=== PATIENT | female | born 1960 | race Caucasian/White ===

== ENCOUNTER 2017-07-17 10:18 | Outpatient (POV) | payer BC, SELFPAY | END 2017-07-17 11:23 | disposition home or self-care (01) | PROVIDERS: Visit Provider Podiatrist | DX: Z98.890 Other specified postprocedural states (principal) | CPT/HCPCS: 99024; 73630 ==

== ENCOUNTER → 2017-08-17 16:33 | Outpatient (CLI) | payer BC, SELFPAY ==
--- NOTE | 2017-08-17 | XR_ITS ---
XR foot RT min 3V HISTORY: Follow-up ORIF/arthrodesis ITS.REASON: S/P HOPKINS'S FX. ORDERING PHYSICIAN: Dot Lee DPM PATIENT AGE: 56 years COMPARISON: 07/17/2017 FINDINGS: Weightbearing views are performed. Status post arthrodesis with fusion of the talocalcaneal joint. There are 2 oblique screws extending from the posterior aspect of the calcaneus into the talus. Status post bone fragment removal of the posterior talus. Bony cortical irregularity is present at the posterior aspect of the talocalcaneal joint. There is good alignment. Stippled areas of increased density are present along and dorsal to the talocalcaneal joint and may be related to bony debris or inserted material to aid in the fusion process. IMPRESSION: No change status post posterior arthrodesis of the talocalcaneal joint with good alignment
== END ==
PROVIDERS: PCP Internal Medicine Adolescent Medicine; Visit Provider Podiatrist
DX: Z98.890 Other specified postprocedural states (principal)
CPT/HCPCS: 73630

== ENCOUNTER 2017-08-31 09:00 | Outpatient (RCR) | payer BC, SELFPAY ==
--- NOTE | 2017-08-29 08:09 | HMH.RHREAS ---
Rehab Reassessment Rehab OP Re-assessment Start: 08/17/17 08:47 Freq: Status: Active Protocol: Document 08/24/17 08:22 BRETTYASMIN (Rec: 08/24/17 09:15 LEONOR [id number]) Electronically Signed By Shaquille Rhoades, PT 08/24/17 08:22 Rehab Re-assessment Subjective Subjective PT REPORTS 2/10 R ANKLE PAIN W /ACTIVITY ON VAS, AND FEELS 75 -80% BETTER OVERALL SINCE I. EVAL Objective Objective Notes AROM R ANKLE DF 0-10, PF 0-32, INV 0-21, EVR 0-8 MMT: R ANKLE DF 4-4+/5, PF 4-4 +/5, INV 4/5, EVR 4/5 TTP: R ANKLE GLOBALLY 0/4 STANDING TOLERANCE 2-3 HRS WALKING TOLERANCE 1-2 HRS Assessment Progress Assessment Progressing as Expected Assessment Notes PT W/ MARKED IMPROVEMENTS IN ROM, STRENGTH, AND ROM Patient goals met STG 03/14 LTG 06/20 Goals Not Met LTG 14 (WORK, PAIN LEVEL, ADV HEP) Plan Plan PT TO CONTINUE WITH SKILLED P. T. TO ALLOW FOR FURTHER IMPROVEMENTS WITH HIGH LEVEL FUNCTIONAL ACTIVITIES IN AN EFFORT TO RETURN TO FULL-WORK- RELATED DUTIES Frequency of Therapy 1-2DAYS/WEEK Duration of therapy 1-2WEEKS Time and Billing Re-Eval Time 18 Re-Eval Billing Units 1 PHYSICIAN CERTIFICATION: I certify the specified therapy services for Rona Jones are required, authorized, and reviewed every 30 days.
== END 2017-08-31 09:01 | disposition home or self-care (01) ==
LOC: PT 09:00
PROVIDERS: Visit Provider Podiatrist
DX: Z98.890 Other specified postprocedural states (principal)
CPT/HCPCS: 97010; 97014; 97110; 97112; 97140; 97164; G0283

== ENCOUNTER → 2017-08-31 11:42 | Outpatient (CLI) | payer BC, SELFPAY ==
[2017-08-31 13:25] LABS: Hemoglobin A1C 5.7 % (0.0-7.0)
[2017-08-31 14:33] LABS: Alanine Aminotransferase 25 U/L (12-78); Albumin Level 3.8 gm/dL (3.4-5.0); Albumin/Globulin Ratio 1.3 (1.1-1.8); Alkaline Phosphatase 67 U/L (46-116); Anion Gap 14.4 mEq/L (5-15); Aspartate Amino Transferase 14 U/L (15-37); Bilirubin,Total 0.4 mg/dL (0.2-1.0); Blood Urea Nitrogen 13 mg/dL (7-18); Calcium 9.1 mg/dL (8.5-10.1); Carbon Dioxide 26 mmol/L (21.0-32.0); Chloride 105 mmol/L (98-107); Chol/HDL Ratio 7.5 (1-3.5); Cholesterol 269 mg/dL (140-200); Creatinine,Serum 0.79 mg/dL (0.55-1.02); Estimated Glomerular Filt Rate 76 ml/min (>60); GFR (African American) 91 ML/MIN (>60); Globulin 2.9 gm/dl (1.3-3.2); Glucose 103 mg/dL (74-106); HDL Cholesterol 36 mg/dL (29-89); LDL Cholesterol 196 mg/dL (0-130); Potassium 4.4 mmoL/L (3.5-5.1); Sodium 141 mmol/L (136-145); Thyroid Stimulating Hormone 1.36 uIU/ml (0.358-3.740); Total Protein,Serum 6.7 gm/dL (6.4-8.2); Triglycerides 183 mg/dL (30-200); VLDL Cholesterol 37 mg/dL (0-40)
[2017-09-01 18:26] LABS: Vitamin D 25 Hydroxy 44.7 ng/mL (30.0-100.0)
== END ==
PROVIDERS: PCP Internal Medicine Adolescent Medicine; Visit Provider Nurse Practitioner Family
DX: E03.9 Hypothyroidism, unspecified (principal); E78.5 Hyperlipidemia, unspecified; E11.9 Type 2 diabetes mellitus without complications; E55.9 Vitamin D deficiency, unspecified
CPT/HCPCS: 36415; 80053; 80061; 82652; 83036; 84443

== ENCOUNTER → 2017-11-28 08:15 | Outpatient (CLI) | payer BC, SELFPAY ==
--- NOTE | 2017-11-28 09:23 | XR_ITS ---
XR foot wt bearing RT 3V HISTORY: Follow-up fusion/surgery with pain ORDERING PHYSICIAN: Dot Lee DPM PATIENT AGE: 57 years COMPARISON: 08/17/2017 FINDINGS: There has been prior fusion of the posterior subtalar joint with the calcaneus without discrete is at the joint site. Screws are unchanged with no evidence of loosening. The mid and forefoot have an unremarkable appearance. IMPRESSION: No change status post arthrodesis of the posterior subtalar joint with good alignment
--- NOTE | 2017-11-28 09:23 | XR_ITS ---
XR calcaneus RT min 2V CLINICAL INDICATION: Follow-up fusionITS.REASON: post operative views ORDERING PHYSICIAN: Dot Lee DPM PATIENT AGE: 57 years COMPARISON: 07/03/2017 FINDINGS: There are 2 screws extending from the posterior aspect of the calcaneus obliquely into the talus with osteosclerosis at the talocalcaneal joint with good alignment. Previously noted hyperdense debris along the posterior aspect of the joint. Less apparent in the sclerotic line at the talocalcaneal joint posteriorly is somewhat more dense. IMPRESSION: Good alignment status post fusion of the talocalcaneal joint as described above without evidence of complication
== END ==
PROVIDERS: PCP Internal Medicine Adolescent Medicine; Visit Provider Podiatrist
DX: Z98.890 Other specified postprocedural states (principal)
CPT/HCPCS: 73630; 73650

== ENCOUNTER → 2018-06-07 08:41 | Outpatient (CLI) | payer BC, SELFPAY ==
[2018-06-07 09:07] LABS: Basophils % 0.7 % (0.1-2.0); Eosinophils # 0.1 K/mm3 (0.0-0.4); Eosinophils % 1.4 % (0.1-12.0); Hematocrit 33.8 % (37.0-47.0); Hemoglobin 10.8 g/dL (12.2-16.2); Lymphocytes # 1.4 K/mm3 (0.7-4.5); Lymphocytes % 30.2 K/mm3 (10-50); Mean Corpuscular HGB Conc 31.9 g/dL (31.8-35.4); Mean Corpuscular Volume 87.5 fl (81-99); Mean Platelet Volume 7.3 fl (7.4-10.4); Monocytes # 0.3 K/mm3 (0.1-1.0); Neutrophils # 2.9 K/mm3 (1.8-7.8); Neutrophils % 60.7 % (37.0-80.0); Platelet Count 313 K/mm3 (142-424); Red Blood Count 3.86 M/mm3 (4.20-5.40); Red Cell Distribution Width 14.8 % (11.5-17.5); White Blood Count 4.7 K/mm3 (4.8-10.8)
[2018-06-07 09:14] LABS: Hemoglobin A1C 5.3 % (0.0-7.0)
[2018-06-07 09:17] LABS: Creatinine,Urine Random 144 mg/dL (20-320)
[2018-06-07 10:02] LABS: Alanine Aminotransferase 17 U/L (12-78); Albumin Level 3.7 gm/dL (3.4-5.0); Albumin/Globulin Ratio 1.3 (1.1-1.8); Alkaline Phosphatase 55 U/L (46-116); Anion Gap 13.3 mEq/L (5-15); Aspartate Amino Transferase 14 U/L (15-37); Bilirubin,Total 0.5 mg/dL (0.2-1.0); Blood Urea Nitrogen 15 mg/dL (7-18); Calcium 9.2 mg/dL (8.5-10.1); Carbon Dioxide 28 mmol/L (21.0-32.0); Chloride 106 mmol/L (98-107); Chol/HDL Ratio 5.3 (1-3.5); Cholesterol 224 mg/dL (140-200); Creatinine,Serum 0.73 mg/dL (0.55-1.02); Estimated Glomerular Filt Rate 82 ml/min (>60); GFR (African American) 100 ML/MIN (>60); Globulin 2.9 gm/dl (1.3-3.2); Glucose 88 mg/dL (74-106); HDL Cholesterol 42 mg/dL (29-89); LDL Cholesterol 158 mg/dL (0-130); Potassium 4.3 mmoL/L (3.5-5.1); Sodium 143 mmol/L (136-145); Thyroid Stimulating Hormone 0.32 uIU/ml (0.358-3.740); Total Protein,Serum 6.6 gm/dL (6.4-8.2); Triglycerides 118 mg/dL (30-200); VLDL Cholesterol 24 mg/dL (0-40)
[2018-06-08 09:48] LABS: Ferritin 10 ng/mL (8-388)
[2018-06-08 14:16] LABS: Vitamin B12 359 pg/mL (232-1245)
[2018-06-08 14:17] LABS: Microalbumin, Urine 4.7 ug/mL (Not Estab.); Vitamin D 25 Hydroxy 48.2 ng/mL (30.0-100.0)
[2018-06-09 08:22] LABS: Iron 57 ug/dL (27-159); Iron Saturation 16 % (15-55); UIBC 301 ug/dL (131-425)
[2018-06-09 18:43] LABS: Folate 11.1 ng/mL (>3.0)
== END ==
PROVIDERS: Visit Provider Nurse Practitioner Family
DX: E11.9 Type 2 diabetes mellitus without complications (principal); E78.5 Hyperlipidemia, unspecified; E03.9 Hypothyroidism, unspecified; E53.8 Deficiency of other specified B group vitamins; E55.9 Vitamin D deficiency, unspecified; D50.9 Iron deficiency anemia, unspecified
CPT/HCPCS: 36415; 80053; 80061; 82043; 82570; 82607; 82652; 82728; 82746; 83036; 83540; 83550; 84443; 85025

== ENCOUNTER → 2019-09-19 11:14 | Outpatient (CLI) | payer BC, SELFPAY ==
[2019-09-19 11:40] LABS: Basophils % 0.9 % (0.1-2.0); Eosinophils # 0.1 K/mm3 (0.0-0.4); Eosinophils % 1.2 % (0.1-12.0); Hematocrit 38.8 % (37.0-47.0); Hemoglobin 12.6 g/dL (12.2-16.2); Lymphocytes # 1.6 K/mm3 (0.7-4.5); Lymphocytes % 30.8 % (10-50); Mean Corpuscular HGB Conc 32.5 g/dL (31.8-35.4); Mean Corpuscular Hemoglobin 28.4 pg (27.0-31.2); Mean Corpuscular Volume 87.6 fl (81-99); Mean Platelet Volume 7.7 fl (7.4-10.4); Monocytes # 0.3 K/mm3 (0.1-1.0); Monocytes % 5.4 % (1.7-9.3); Neutrophils # 3.2 K/mm3 (1.8-7.8); Neutrophils % 61.8 % (37.0-80.0); Platelet Count 322 K/mm3 (142-424); Red Blood Count 4.43 M/mm3 (4.20-5.40); Red Cell Distribution Width 14.7 % (11.5-17.5); White Blood Count 5.2 K/mm3 (4.8-10.8)
[2019-09-19 13:00] LABS: Alanine Aminotransferase 16 U/L (9-52); Albumin Level 3.8 g/dL (3.4-5.0); Albumin/Globulin Ratio 1.2 (1.1-1.8); Alkaline Phosphatase 56 U/L (46-116); Anion Gap 14.3 mEq/L (5-15); Aspartate Amino Transferase 11 U/L (15-37); Bilirubin,Total 0.4 mg/dL (0.2-1.0); Blood Urea Nitrogen 16 mg/dL (7-18); Calcium 8.9 mg/dL (8.5-10.1); Carbon Dioxide 27 mmol/L (21.0-32.0); Chloride 109 mmol/L (98-107); Chol/HDL Ratio 6.6 (1-3.5); Cholesterol 263 mg/dL (140-200); Creatinine,Serum 0.82 mg/dL (0.55-1.02); Estimated Glomerular Filt Rate 72 ml/min (>60); Free T4 (Free Thyroxine) 1.21 ng/dl (0.76-1.46); GFR (African American) 87 ML/MIN (>60); Globulin 3.1 gm/dl (1.3-3.2); Glucose 92 mg/dL (74-106); HDL Cholesterol 40 mg/dL (29-89); LDL Cholesterol 188 mg/dL (0-130); Potassium 4.3 mmoL/L (3.5-5.1); Sodium 146 mmol/L (137-145); Thyroid Stimulating Hormone 0.97 uIU/ml (0.358-3.740); Total Protein,Serum 6.9 g/dL (6.4-8.2); Triglycerides 177 mg/dL (30-200); VLDL Cholesterol 35 mg/dL (0-40)
[2019-09-19 14:48] LABS: Hemoglobin A1C 5.6 % (0.0-7.0)
[2019-09-20 10:51] LABS: Vitamin B12 457 pg/mL (232-1245); Vitamin D 25 Hydroxy 34.1 ng/mL (30.0-100.0)
[2019-09-20 11:01] LABS: Creatinine, Urine 221.8 mg/dL (Not Estab.); Microalbumin, Urine 10.4 ug/mL (Not Estab.)
== END ==
PROVIDERS: Visit Provider Nurse Practitioner Family
DX: E78.5 Hyperlipidemia, unspecified (principal); E11.9 Type 2 diabetes mellitus without complications; E03.9 Hypothyroidism, unspecified; E55.9 Vitamin D deficiency, unspecified; E53.8 Deficiency of other specified B group vitamins; Z79.84 Long term (current) use of oral hypoglycemic drugs; Z86.2 Personal history of diseases of the blood and blood-forming organs and certain disorders involving the immune mechanism
CPT/HCPCS: 36415; 80053; 80061; 82043; 82570; 82607; 82652; 83036; 84439; 84443; 85025

== ENCOUNTER → 2019-12-16 08:40 | Outpatient (CLI) | payer BC, SELFPAY ==
--- NOTE | 2019-12-16 09:25 | MM_ITS ---
PROCEDURE: MM DIG SCREENING MAMM BI W/CAD Digital Breast Tomosynthesis Included CLINICAL INDICATION: SCREENING There is no personal or family history of breast cancer. There has been a previous biopsy left breast for benign disease. COMPARISON: The patient had previous mammograms at [facility] but they have been purged TECHNIQUE: Standard CC and MLO images and 3D Tomosynthesis was obtained. R2 CAD reviewed. FINDINGS: Scattered fibroglandular densities are seen throughout both breasts. Paul images were reviewed. There is no suspicious lesion and no suspicious microcalcifications. IMPRESSION: Fibrofatty parenchyma with no suspicious lesions seen BI-RAD Category: 1 Negative FOLLOW-UP: 1YR 1 Year Follow-up (A letter has been sent to the patient regarding results of the study.) Dictated by: Dr. Sixto Ramirez MD 12/17/2019 13:[address] Sixto Ramirez MD in [place] 12/17/2019 13:05
== END ==
PROVIDERS: PCP Internal Medicine Adolescent Medicine; Visit Provider Nurse Practitioner Family
DX: Z12.31 Encounter for screening mammogram for malignant neoplasm of breast (principal)
CPT/HCPCS: 77063; 77067

== ENCOUNTER → 2019-12-19 10:39 | Outpatient (CLI) | payer BC, SELFPAY ==
[2019-12-19 10:45] LABS: Adenovirus,PCR Not Detected (NotDetected); Bordetella Pertussis Not Detected (NotDetected); Chlamydophila Pneumoniae, PCR Not Detected (NotDetected); Coronavirus 19, PCR Not Detected (NotDetected); Coronavirus 229E Not Detected (NotDetected); Coronavirus NL63 Not Detected (NotDetected); Coronavirus OC43 Not Detected (NotDetected); Coronovirus HKU1,PCR Not Detected (NotDetected); Human Metapneumovirus Not Detected (NotDetected); Influenza A, PCR Not Detected (NotDetected); Influenza AH1, 2009 Not Detected (NotDetected); Influenza AH1, PCR Not Detected (NotDetected); Influenza AH3,PCR Not Detected (NotDetected); Influenza B, PCR Not Detected (NotDetected); Mycoplasma Pneumoniae, PCR Not Detected (NotDected); Parainfluenza 1, PCR Not Detected (NotDetected); Parainfluenza 2, PCR Not Detected (NotDetected); Parainfluenza 3, PCR Not Detected (NotDetected); Parainfluenza 4, PCR Not Detected (NotDetected); Respiratory Syncytial Virus Not Detected (NotDetected); Rhinovirus/Enterovirus Not Detected (NotDetected)
== END ==
PROVIDERS: Visit Provider Internal Medicine Gastroenterology
DX: Z01.818 Encounter for other preprocedural examination (principal); Z12.11 Encounter for screening for malignant neoplasm of colon; Z03.818 Encounter for observation for suspected exposure to other biological agents ruled out
CPT/HCPCS: 87581; 87633; 87798; U0003

== ENCOUNTER 2019-12-20 06:44 | Day surgery (SDC) | payer BC, SELFPAY ==
--- NOTE | 2019-12-17 15:50 | SUR.PREOP ---
12/17/2019 @ 2538--PHONE CALL MADE TO PATIENT. PATIENT UNDERSTANDS THAT LAB WORK AND COVID TESTING NEEDS TO BE COMPLETED BY 1100 ON 12/18/2019. PATIENT UNDERSTANDS IF LAB WORK AND COVID-19 TESTS ARE NOT COMPLETED BY 12PM ON THAT DATE, THE SURGERY SCHEDULED WILL BE CANCELLED AND RESCHEDULED FOR ANOTHER TIME.
[2019-12-19 09:14] VITALS: BMI 35.0
[2019-12-20 06:55] VITALS: BP 152/77; PULSE 89; RESP 18; TEMP 36.6; O2SAT 92
--- NOTE | 2019-12-20 08:06 | HMH.ANESCL ---
[facility] Anesthesia Checklist - Patient Identification Patient Identification: Arm Band, Verbal (Name & ) - Structural Data Admitted From: Home Planned Operative Procedure/s: colon Consent for Planned Operative Procedure(s) Verified: Yes Verified Documents: History and Physical - NPO Status Verified Time NPO: 00:00 - Additional verifications Patient : No Anesthesia Reactions: No Hx Blood Transfusions: No Blood Transfusion Reaction: No Cephalosporin Allergy: No Previous Colonoscopy: No - Cardiovascular Assessment Heart Sounds: S1 & S2 Pulse Strength: Baseline Pulse Rhythm: Regular Peripheral Edema: No - Airway Assessment C-Spine Mobility Assessed: Yes TMJ Mobility Assessed: Yes Dentition: Good Dentition - Neurological Assessment Level of Consciousness: Awake, Alert, Appropriate Hx Seizures: No Numbness or tingling in extremities: No - Anesthesia Plan Anesthesia Risk discussed: Yes Anesthesia Plan: Verified ASA Class: II Anesthesia Type: MAC [facility] History I have reviewed the patient's past medical history: Yes Medical History: Reports:: Diabetes Mellitus Type 2, Hyperlipidemia Denies:: Cancer, Diabetes Mellitus Type 1, Internal Pacemaker, MRSA, Seizures *Have you ever received a pneumonia vaccine?: Yes *Have you received a flu vaccine this season?: Yes Other Medical History: Reports: Arthritis, Hypothyroidism Anesthesia experience/problems:: none Laterality Cases: Left: Lumpectomy Other Surgeries: Yes: Other. No: Pacemaker Amputation: No Fractures: Yes (ankle) - *Social History Educational Level: Completed Graduate School Smoking Status: Never smoker Tobacco Type: cigarettes # Packs/Day (cigarettes): 0 #Yrs smoked (if former smoker): 0 Alcohol Intake: never Alcohol Intake Frequency:: other Substance Use Type: denies use *Occupational Status:: employed Housing: house Household Members: spouse *Travel in the last 8 weeks: None Family Hx:: No significant family history
[2019-12-20 08:17] VITALS: O2SAT 97
--- NOTE | 2019-12-20 08:19 | HMH.PROC ---
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 She reports no abdominal pain, weight loss, change in her bowel habits or rectal bleeding. She reports no family history of colon cancer. She reports an anal fistula repair 30 years ago. Procedure: Prior to the procedure, a history and physical exam was performed, and patient's medications and allergies were reviewed. The risks, benefits and alternatives of the sedation and procedure were discussed with the patient. All questions were answered and informed consent was obtained. The patient was brought to the procedure room. Patient identification and proposed procedure were verified by the physician and the nurse. The patient was placed in a left lateral decubitus position and the scope was passed under direct vision. Throughout the procedure, the patient's blood pressure, pulse, and oxygen saturations were monitored continuously. The colonoscopy was accomplished without difficulty. The patient tolerated the procedure well. Findings: On digital rectal examination there was normal rectal tone. There were no external hemorrhoids. The colonoscope was introduced through the anal canal to the rectum and advanced to the cecum. The ileocecal valve and appendiceal orifice were identified. The scope was advanced a short distance into the ileum which appeared grossly normal. The scope was then withdrawn into the colon. The cecum was normal. There was a diminutive 3 to 4 mm polyp in the ascending colon removed via cold snare polypectomy. The transverse colon was normal. There were scattered diverticuli throughout the descending and sigmoid colon (LEFT colon). The rectum itself was normal. Upon retroflexion within the rectum there were grade 1 internal hemorrhoids. The preparation was excellent throughout with [place] Preparation Score of 9. The cecal time was 12 minutes. Impression: 1. Diminutive ascending colon polyp 2. Left-sided diverticulosis 3. Grade 1 internal hemorrhoids Plan: I will follow up the polyp pathology and recommend repeat colonoscopy again in 7-10 years based upon the polyp histology. I would encourage fiber supplementation on a long-term daily maintenance basis.
[2019-12-20 08:40] VITALS: BP 97/59; PULSE 72; RESP 16; TEMP 36.1; O2SAT 92
[2019-12-20 08:55] VITALS: BP 129/81; PULSE 84; RESP 16; O2SAT 96
[2019-12-20 09:10] VITALS: BP 152/84; PULSE 64; RESP 18; O2SAT 97
[2019-12-20 09:34] VITALS: BP 141/78; PULSE 82; RESP 16; O2SAT 98
[2019-12-20 14:23] LABS: POC Glucose,Bedside 124 (70-110)
== END 2019-12-20 09:34 | disposition home or self-care (01) ==
LOC: OUTP 06:46
PROVIDERS: PCP Internal Medicine Adolescent Medicine; Visit Provider Internal Medicine Gastroenterology
PROC: 0DJD8ZZ Inspection of Lower Intestinal Tract, Via Natural or Artificial Opening Endoscopic (ICD-10-PCS; CPT 45378; principal; 2019-12-20 08:00)
DX: Z12.11 Encounter for screening for malignant neoplasm of colon (principal); D12.2 Benign neoplasm of ascending colon; K64.0 First degree hemorrhoids; Z79.84 Long term (current) use of oral hypoglycemic drugs; E03.9 Hypothyroidism, unspecified; E11.9 Type 2 diabetes mellitus without complications
CPT/HCPCS: 45385; 82962

== ENCOUNTER → 2020-10-01 09:41 | Outpatient (CLI) | payer BC, SELFPAY ==
[2020-10-01 10:16] LABS: Basophils % 0.9 % (0.1-2.0); Eosinophils # 0.1 K/mm3 (0.0-0.4); Eosinophils % 2.3 % (0.1-12.0); Hematocrit 34.1 % (37.0-47.0); Hemoglobin 10.9 g/dL (12.2-16.2); Lymphocytes # 1.3 K/mm3 (0.7-4.5); Lymphocytes % 30.7 % (10-50); Mean Corpuscular HGB Conc 31.9 g/dL (31.8-35.4); Mean Corpuscular Hemoglobin 28.2 pg (27.0-31.2); Mean Corpuscular Volume 88.3 fl (81-99); Mean Platelet Volume 7.7 fl (7.4-10.4); Monocytes # 0.3 K/mm3 (0.1-1.0); Monocytes % 6.4 % (1.7-9.3); Neutrophils # 2.6 K/mm3 (1.8-7.8); Neutrophils % 59.7 % (37.0-80.0); Platelet Count 355 K/mm3 (142-424); Red Blood Count 3.86 M/mm3 (4.20-5.40); Red Cell Distribution Width 15.2 % (11.5-17.5); White Blood Count 4.3 K/mm3 (4.8-10.8)
[2020-10-01 10:22] LABS: Microalbumin/Creatinine Ratio 4.6
[2020-10-01 10:31] LABS: Creatinine,Urine Random 174 mg/dL (Not Estab.); Hemoglobin A1C 5.4 % (4.0-6.0)
[2020-10-01 10:35] LABS: Alanine Aminotransferase 16 U/L (12-78); Albumin Level 4.1 g/dl (3.5-5.0); Albumin/Globulin Ratio 1.5 (1.1-1.8); Alkaline Phosphatase 57 U/L (38-126); Anion Gap 10.1 mEq/L (5-15); Aspartate Amino Transferase 20 U/L (14-36); Bilirubin,Total 0.5 mg/dl (0.2-1.3); Blood Urea Nitrogen 12 mg/dl (7-17); Calcium 9.5 mg/dl (8.4-10.2); Carbon Dioxide 26 mmol/L (22.0-30.0); Chloride 107 mmol/L (98-107); Chol/HDL Ratio 5.2 (1-3.5); Cholesterol 241 mg/dl (140-200); Estimated Glomerular Filt Rate 73 ml/min (>60); GFR (African American) 89 ML/MIN (>60); Globulin 2.8 g/dL (1.3-3.2); Glucose 111 mg/dl (74-100); HDL Cholesterol 46 mg/dl (40-60); Potassium 4.1 mmoL/L (3.5-5.1); Sodium 139 mmol/L (136-145); Total Protein,Serum 6.9 g/dl (6.3-8.2); Triglycerides 147 mg/dl (30-150); VLDL Cholesterol 29 mg/dL (0-40)
[2020-10-01 10:47] LABS: Direct LDL Cholesterol 160.73 mg/dL (100-129)
[2020-10-01 10:52] LABS: 25-OH Vitamin D, Total 29.8 ng/mL (30-100)
[2020-10-01 11:06] LABS: Thyroid Stimulating Hormone 1.91 uIU/mL (0.465-4.68)
[2020-10-01 11:25] LABS: Vitamin B12 319 pg/mL (239-931)
== END ==
PROVIDERS: Visit Provider Nurse Practitioner Family
DX: Z00.00 Encounter for general adult medical examination without abnormal findings (principal); E03.9 Hypothyroidism, unspecified; E78.5 Hyperlipidemia, unspecified; E53.8 Deficiency of other specified B group vitamins; E55.9 Vitamin D deficiency, unspecified; E11.9 Type 2 diabetes mellitus without complications; Z79.84 Long term (current) use of oral hypoglycemic drugs
CPT/HCPCS: 36415; 80053; 80061; 82043; 82306; 82570; 82607; 83036; 84443; 85025